=== PATIENT | female | born 1950 | race Caucasian/White ===

== ENCOUNTER 2023-10-13 08:00 | Outpatient (CLI) | payer MEDICARE, OTHER | END 2023-10-13 23:59 | disposition home or self-care (01) | LOC: LAB 08:00 | PROVIDERS: ATTEND Physician Assistant Medical | DX: J02.9 Acute pharyngitis, unspecified (principal) | CPT/HCPCS: 87070 ==

== ENCOUNTER 2023-10-23 21:08 | Emergency (ER) | payer MEDICARE ==
--- NOTE | 2023-10-23 21:21 | ED Physician Documentation ---
PD HPI CHEST PAIN - Stated complaint Stated Complaint: CHEST PX - Chief complaint Chief Complaint: Cardiac - History obtained from History obtained from: Patient - Additional information Additional information: HPI from patient. Patient complains of a few days of midline chest pain, does not radiate. It is constant. There was no inciting event, and she has not noticed any exacerbating nor ameliorating factors. She says she is also had some dyspnea but no cough. She denies history of similar chest pain; she says the dyspnea does not feel unlike previous asthma exacerbations. Patient says she developed laryngitis a few weeks ago for which was seen by her PMD. She says she was given steroids for this but feels that she still is having symptoms due to what she suspects is a URI. Denies leg swelling. Review of Systems Constitutional: denies: Fever Cardiac: reports: Chest pain / pressure. denies: Palpitations, Pedal edema Respiratory: reports: Dyspnea. denies: Cough GI: reports: Reviewed and negative Musculoskeletal: denies: Extremity swelling PD PAST MEDICAL HISTORY - Past Medical History Past Medical History: Yes Cardiovascular: None Respiratory: None Neuro: None GI: None QUALITY ASSURANCE REPRESENTATIVE: None : None HEENT: None Psych: Depression, Anxiety Musculoskeletal: None Derm: None - Past Surgical History Past Surgical History: Yes Ortho: Hip replacement - Allergies Allergies/Adverse Reactions: Allergies Allergy/AdvReac Type Severity Reaction Status Date / Time Sulfa (Sulfonamide Allergy Rash Verified 10/23/23 21:11 Antibiotics) - Social History Does the pt smoke?: No Smoking Status: Never smoker Does the pt drink ETOH?: No Does the pt have substance abuse?: No - Immunizations Immunizations are current?: Yes PD ED PE NORMAL - Vitals Vital signs reviewed: Yes - General General: Alert and oriented X 3, No acute distress, Well developed/nourished - Cardiac Cardiac: RRR, No murmur, No gallop, No rub - Respiratory Respiratory: No respiratory distress, Clear bilaterally - Extremities Extremities: No edema Results - Vitals Vitals: Vital Signs - 24 hr 10/23/23 10/23/23 10/23/23 21:11 21:43 22:45 Temperature 36.5 C Heart Rate 99 98 78 Respiratory 16 18 15 Rate Blood Pressure 145/94 H 136/88 H O2 Saturation 99 98 99 Oxygen O2 Source Room air - EKG (time done) No standard instances EKG releavant findings:: EKG personally interpreted by author of this note. Relevant findings are: Rate: Rate (enter#) (88) Rhythm: NSR [place]: LAD Intervals: Normal SC, LBBB Ischemia: Other (does not meet any Combs-modified Sgarbossa criteria) - Labs Labs: Laboratory Tests 10/23/23 10/23/23 21:34 21:34 WBC 10.7 RBC 4.85 Hgb 14.2 Hct 43.5 MCV 89.7 MCH 29.3 MCHC 32.6 RDW 14.2 Plt Count 455 H MPV 8.9 Neut # (Auto) 5.3 Lymph # (Auto) 4.0 H [place] # (Auto) 1.0 Eos # (Auto) 0.4 Baso # (Auto) 0.1 Absolute Nucleated RBC 0.00 Nucleated RBC % 0.0 Sodium 140 Potassium 3.8 Chloride 111 Carbon Dioxide 20 L Anion Gap 9.0 BUN 16 Creatinine 1.0 Estimated GFR (MDRD) 55 L Glucose 127 H Calcium 9.7 Total Bilirubin 0.3 AST 15 ALT 12 Alkaline Phosphatase 60 Troponin I High Sens 2.9 Total Protein 6.6 Albumin 4.4 Globulin 2.2 Albumin/Globulin Ratio 2.0 Lipase 40 - Rads (name of study) chest xray Relevant Findings:: Prelim report reviewed, See rad report PD Medical Decision Making - ED course Complexity details: reviewed results, re-evaluated patient, considered diffe rential, d/w patient ED course: Patient presents with chest pain that started a few days ago. Patient says the pain has been constant; it does wax and wane at times in intensity but has never completely resolved over the past few days since it began. She denies history of similar symptoms. She is also describing URI symptoms over the past few weeks for which she was recently given p.o. steroids. EKG demonstrates left bundle branch block. The patient does not recall ever being told of this finding before, and I have no previous EKG for comparison. However, EKG does not meet any Combs-modified Sgarbossa criteria, and high- sensitivity troponin is normal. Mild thrombocytosis noted on CBC (455) but no other notable/concerning findings on CBC. This abnormality might be due to acute phase reactant in light of upper respiratory infection. There are no concerning or diagnostic findings on ER abdominal panel. Chest x-ray is consistent with viral pneumonia. Further testing from an emergency standpoint is not indicated at this time. I reviewed results of the test with the patient, return precautions were discussed, and I emphasized the importance of following up with her primary care provider (next fillable appointment) for reevaluation even if her symptoms resolve in the interim. Departure - Departure Disposition: 01 Home, Self Care Clinical Impression: Chest pain Qualifiers: Chest pain type: unspecified Qualified Code(s): R07.9 - Chest pain, unspecified Condition: Good Instructions: ED Chest Pain Atypical Unkn Cause Comments: There were no diagnostic findings on tonight's tests. As we discussed, there is an abnormality on your EKG called left bundle branch block. I do not have a previous EKG for you to use for comparison; you need to follow up with your primary care provider for this (as well as reevaluation of your symptoms). If they are able to find records of a previous EKG for comparative purposes and the finding is not new, it would be reassuring. Even if your symptoms resolve, further testing might be indicated (such as a stress test, at your primary care provider's discretion). Forms: PCP List Discharge Date/Time: 10/23/23 22:56
[2023-10-23 21:39] LABS: BASOPHILS # (AUTO) 0.1 10^3/uL (0.0-0.1); BASOPHILS % (AUTO) 0.8 %; EOSINOPHILS # (AUTO) 0.4 10^3/uL (0.0-0.7); EOSINOPHILS % (AUTO) 3.3 %; HCT - HEMATOCRIT 43.5 % (37.0-47.0); HGB - HEMOGLOBIN 14.2 g/dL (12.0-16.0); LYMPHOCYTES % (AUTO) 36.9 %; MEAN CORPUSCULAR HEMOGLOBIN 29.3 pg (27.0-31.0); MEAN CORPUSCULAR HGB CONC 32.6 g/dL (32.0-36.0); MEAN CORPUSCULAR VOLUME 89.7 fL (81.0-99.0); MEAN PLATELET VOLUME 8.9 fL (7.9-10.8); MONOCYTES % (AUTO) 9.1 %; NEUTROPHILS # (AUTO) 5.3 10^3/uL (1.5-6.6); NEUTROPHILS % (AUTO) 49.7 %; PLT - PLATELET COUNT 455 10^3/uL (130-450); RED BLOOD COUNT 4.85 10^6/uL (4.20-5.40); RED CELL DISTRIBUTION WIDTH 14.2 % (12.0-15.0); WHITE BLOOD COUNT 10.7 x10^3/uL (4.8-10.8)
[2023-10-23 21:52] LABS: ALBUMIN 4.4 g/dL (3.2-5.5); BILIRUBIN,TOTAL 0.3 mg/dL (0.2-1.0); CALCIUM 9.7 mg/dL (8.5-10.3); POTASSIUM 3.8 mmol/L (3.5-4.5); TOTAL PROTEIN 6.6 g/dL (6.4-8.9)
--- NOTE | 2023-10-23 22:01 | XRAY Report ---
PROCEDURE: Chest 1 View X-Ray INDICATIONS: Chest pain TECHNIQUE: One view of the chest was acquired. COMPARISON: None. FINDINGS: Surgical changes and devices: None. Lungs and pleura: Mild bilateral interstitial prominence is seen. No focal consolidation. No pleural effusion or pneumothorax. Mediastinum: Mediastinal contours appear normal. Heart size is normal. Bones and chest wall: No suspicious bony lesions. Overlying soft tissues appear unremarkable. IMPRESSION: Mild bilateral interstitial prominence, which can be seen in setting of atypical or viral pneumonia v ersus mild edema. No focal consolidation. Reviewed by: Issac Coyne MD on 10/23/2023 9:59 PM PST Approved by: Issac Coyne MD on 10/23/2023 9:59 PM PST Station ID: [id number]
[2023-10-23 22:13] LABS: TROPONIN I HIGH SENSITIVITY 2.9 ng/L (2.3-14.8)
[2023-10-23 23:10] VITALS: BP 136/88; O2SAT 99
== END 2023-10-23 22:56 | disposition home or self-care (01) ==
LOC: ED 21:08
DX: R07.9 Chest pain, unspecified (principal)
CPT/HCPCS: 36415; 80053; 83690; 84484; 85025; 93005; 99283; 99284